=== PATIENT | female | born 2000 | race Caucasian/White ===

== ENCOUNTER → 2019-11-12 | Outpatient (CLI) | payer BC ==
[~2019-11-12] MED LIST: LORTAB ELIX0.5 MG/ML PO; NO HOME MEDICATIONS
== END ==
LOC: ZCOL.LAB 14:25
DX: M79.10 Myalgia, unspecified site (principal); R19.7 Diarrhea, unspecified; Z20.828 Contact with and (suspected) exposure to other viral communicable diseases